=== PATIENT | female | born 1990 | race Caucasian/White ===

== ENCOUNTER 2016-12-22 05:25 | Inpatient (IN) ==
[2016-12-22] MEDS ORDERED: *HR* LORazepam 2 MG/ML VIAL IM PRN (06:04)
[2016-12-22] MEDS ORDERED: Mag Hydrox/Al Hydrox/Simeth 30 ML UDC PO PRN (06:04)
[2016-12-22] MEDS ORDERED: Ibuprofen 400 MG TABLET PO PRN (06:04)
[2016-12-22] MEDS ORDERED: *HR* LORazepam 1 MG TABLET PO PRN (06:04)
[2016-12-22] MEDS ORDERED: hydrOXYzine pamoate 25 MG CAPSULE PO PRN (06:04)
[2016-12-22] MEDS ORDERED: Haloperidol Lactate 5 MG/ML VIAL IM PRN (06:04)
[2016-12-22] MEDS ORDERED: MOM Conc 10 ML UD.LIQ PO PRN (06:04)
--- NOTE | 2016-12-22 13:03 | Psychiatry History & Physical ---
Date of Encounter: 12/22/16 Time of Encounter: 12:45 History of Present Illness Patient Stated Chief Complaint: "I just had a break down." Medicare Admission Attestation: For traditional Medicare patients the provided hospital inpatient services are reasonable and necessary and in the case of services not specified as inpatient -only under 42 CFR 419.22 (n), that they are appropriately provided as inpatient services in accordance 42 CFR 412.3. For Critical Access Hospital the patient may reasonably be expected to be discharged or transferred to a hospital within 96 hours after admission to the Critical Access Hospital. Admitted From: Direct Admit Plans for Post Hospital Care: Home History of Present Illness: Ms. Barnes is a 26 year old female reports increasing anxiety and stress. She reports increasing depression and auditory hallucinations "telling me to do things." She states that she has chronic passive suicidal ideations and that she continues to feel hopeless and helpless about her life. Her biggest stressor was that she recently went to court with her youngest son's dad and there was a potential change in visitation. Patient's ex did not get any visitation of her son which they will revisit the issue in February. Patient states that her outpatient psychiatrist has continued to increase and had meds but she has not noted significant benefit from these additions. She is not aware of any help on the lithium or the venlafaxine. She still feels very depressed. She does continue to have auditory hallucinations but she states that they come and go. She has a history of depression with both of her children. Last admission here was 2014. She does follow up with a therapist as an outpatient as well. She reports difficulty sleeping lately even with the Seroquel at bedtime. "I can usually fall asleep but I cannot stay asleep." Patient reports at least 2-3 hours of sleep per night but sometimes no more than this. She also has urine drug screen positive for cocaine but denies illicit drug use. She denies alcohol or tobacco use. She denies obsessions, delusions, paranoia. She denies grandiosity or decreased need for sleep. Past Med Surg Social Fam HX - Past Medical History Medical history: no medical history - Past Psychiatric History Psychiatric history: Reports: previous psychiatric hospitalization Past psychiatric history details: Patient reports two previous admissions. Last admission was in 2014 for suicide attempt. Patient sees outpatient therapist and gets medication adjustments. Family psychiatric history: No Family History of Suicide: None - Past Surgical History Surgical History: - Social History Smoking Status: Never smoker Smokeless Tobacco Status: No Alcohol use: none Drug use: none, cocaine (+in uds) Occupational status: disabled Current living situation: With Family - Family History Mother History Unknown: Yes Name: Eva Barnes Age: 43 Family Member Ethnicity: Non- Living Status: Still Living Medications & Allergies Sanderson Carbonate 300 mg PO BID 12/22/16 [History] Quetiapine Fumarate [SEROquel] 25 mg PO QID 12/22/16 [History] Quetiapine Fumarate [Seroquel] 200 mg PO HS 12/22/16 [History] Venlafaxine XR (24 HR) [Effexor XR] 150 mg PO QAM 12/22/16 [History] cloNIDine HCl [Clonidine HCl] 0.2 mg PO HS 12/22/16 [History] hydrOXYzine pamoate [Hydroxyzine Pamoate] 100 mg PO HS 12/22/16 [History] Allergies No Known Allergies Allergy (Verified 12/22/16 06:02) Review of Systems Constitutional: Denies: fever, chills, weakness, weight change Eyes: Denies: eye pain, vision change Ears, Nose, Throat: Denies: ear pain, throat pain, dental pain, hearing loss, congestion Cardiovascular: Denies: chest pain, palpitations, dyspnea on exertion Respiratory: Denies: cough, dyspnea, wheezes Gastrointestinal: Denies: abdominal pain, nausea, vomiting, diarrhea, constipation Genitourinary male: Denies: urgency, dysuria, frequency, genital lesions Genitourinary female: Denies: urgency, dysuria, frequency, abnormal menses, dyspareunia Musculoskeletal: Denies: joint swelling, joint pain Integumentary: Denies: rash, lesions, pruritus Neurological: Denies: headache, weakness, numbness, memory loss Psychiatric: Reports: depression, anxiety, abnormal sleep pattern, suicidal ideation, auditory hallucinations, anhedonia, difficulty concentrating, hopelessness, mood swings Endocrine: Denies: fatigue, heat or cold intolerance Hematologic/Lymphatic: Denies: easy bruising, lymphadenopathy Allergic/Immunologic: Denies: urticaria, itchy eyes Mental Status Exam Patient orientation: Yes Person, Yes Time, Yes Place Level of alertness: Alert Patient appearance: Unkempt Behavior: cooperative Psychomotor activity: Slowed Eye contact: Diverts Contact Mood description: Depressed, Anxious Affect description: flat Speech pattern: Slowed Thought process: Intact Thought content: Yes Suicidal ideation Perceptual disturbances: No Reacting to internal stimuli, Yes Auditory hallucinations Attention span: Capable of Focused Attention Memory description: Grossly Intact Patient reliability: Questionable Historian Intelligence estimate: Average Judgment: Limited Insight: Minimal Exam - HEENT Head exam IM: Present: atraumatic Eye exam IM: Present: EOMI, normal appearance - Neurological Neurological exam IM: Present: CN II-XII intact - Extremities Extremities exam IM: Present: full ROM - Skin Skin exam IM: Present: dry, intact Results - Vital Signs Vital signs: Temp Pulse Resp BP 96.9 F L 85 16 105/73 12/22/16 09:00 12/22/16 09:00 12/22/16 09:00 12/22/16 09:00 Assessment and Plan (1) Bipolar disorder with psychotic features Current visit: Yes Status: Acute Plan: Admit inpatient for safety and stabilization, Close observation, Suicide Precautions per unit protocol, Encourage participation in unit milieu, Group Therapy, Monitor sleep, Monitor appetite Additional Plan: We will taper the lithium and consider increasing the Seroquel depending on how patient responds. Taper Effexor and start Wellbutrin. Encourage positive coping strategies. Risks, benefits, side effects, alternatives discussed w/pt: Yes Patient agreeable to treatment: Yes Plans for Post Hospital Care: Home Estimated Length of Stay (Days): 3 (2) Anxiety Current visit: Yes Status: Acute Plan: Admit inpatient for safety and stabilization, Close observation, Suicide Precautions per unit protocol, Encourage participation in unit milieu, Group Therapy, Monitor sleep, Monitor appetite Additional Plan: Patient reports difficulty coping with stress and high level of anxiety. Continue hydroxyzine for now. (3) Personality disorder Current visit: Yes Status: Acute Plan: Admit inpatient for safety and stabilization, Close observation, Suicide Precautions per unit protocol, Encourage participation in unit milieu, Group Therapy Additional Plan: Patient has chronically poor coping strategies. Encourage group attendance. Risks, benefits, side effects, alternatives discussed w/pt: Yes Patient agreeable to treatment: Yes
[2016-12-22] MEDS ORDERED: Venlafaxine XR (24 HR) 150 MG CAP.ER.24H PO SCH (13:15)
[2016-12-22] MEDS: BuPROPion SR (12 HR) 150 MG TABLET PO SCH (14:22)
[2016-12-22] MEDS: Venlafaxine XR (24 HR) 75 MG CAP.ER.24H PO SCH (14:22)
[2016-12-22] MEDS: cloNIDine HCl 0.1 MG TABLET PO SCH (20:50)
[2016-12-22] MEDS: hydrOXYzine pamoate 25 MG CAPSULE PO SCH (20:51)
[2016-12-22] MEDS: traZODone 50 MG TABLET PO PRN (20:51)
[2016-12-22] MEDS: Lithium Oral Soln 300 MG/5 ML UDC PO SCH (20:52)
[2016-12-22] MEDS ORDERED: Lithium Carbonate 300 MG CAPSULE PO SCH (21:00)
[2016-12-23] MEDS: Venlafaxine XR (24 HR) 75 MG CAP.ER.24H PO SCH (08:52)
[2016-12-23] MEDS: BuPROPion SR (12 HR) 150 MG TABLET PO SCH (08:52)
[2016-12-23] MEDS: Lithium Oral Soln 300 MG/5 ML UDC PO SCH (10:17)
--- NOTE | 2016-12-23 10:38 | Psychiatry Progress Note ---
Date of Encounter: 12/23/16 Time of Encounter: 09:40 Subjective Interval history: Patient seen today for follow-up of depression and anxiety symptoms. She reports that she slept better last night and is starting to feel more rested and having an improved mood. She continues to have occasional auditory hallucinations but they have lessened. She denies issues with the decrease in the lithium. Patient states that she feels more hopeful about her future today than in the past. Occasional SI but patient has no plan to hurt herself here. Review of Systems Constitutional: Denies: fever, chills, weakness, weight change Eyes: Denies: eye pain, vision change Ears, Nose, Throat: Denies: ear pain, throat pain, dental pain, hearing loss, congestion Cardiovascular: Denies: chest pain, palpitations, dyspnea on exertion Respiratory: Denies: cough, dyspnea, wheezes Gastrointestinal: Denies: abdominal pain, nausea, vomiting, diarrhea, constipation Musculoskeletal: Denies: joint swelling, joint pain Neurological: Denies: headache, weakness, numbness, memory loss Psychiatric: Reports: depression, abnormal sleep pattern, suicidal ideation, auditory hallucinations Objective: Exam Patient orientation: Yes Person, Yes Time, Yes Place Level of alertness: Alert Patient appearance: Unkempt Behavior: calm, cooperative Psychomotor activity: Normal Eye contact: Maintains Eye Contact Mood description: Depressed Affect description: congruent with mood Speech pattern: Normal rate, Normal rhythm, Normal tone Speech volume: Normal Thought process: Intact, Logical Thought content: Yes Suicidal ideation Perceptual disturbances: No Reacting to internal stimuli, Yes Auditory hallucinations, No Visual hallucinations Judgment: Limited Insight: Minimal Results - Vital Signs Vital Signs: Temp Pulse Resp BP 98.7 F 87 16 128/82 12/22/16 21:00 12/22/16 21:00 12/22/16 21:00 12/22/16 21:00 Assessment and Plan (1) Bipolar disorder with psychotic features Current visit: Yes Status: Acute Plan: Continue hospitalization, Close observation, Suicide Precautions per unit protocol, Encourage participation in unit milieu, Group Therapy, Monitor sleep, Monitor appetite Additional Plan: Continue taper of lithium and Effexor. Consider increasing Wellbutrin tomorrow. Encourage positive coping strategies. Risks, benefits, side effects, alternatives discussed w/pt: Yes Patient agreeable to treatment: Yes (2) Anxiety Current visit: Yes Status: Acute Plan: Continue hospitalization, Close observation, Suicide Precautions per unit protocol, Encourage participation in unit milieu, Group Therapy, Monitor sleep, Monitor appetite Additional Plan: Continue hydroxyzine for now. (3) Personality disorder Current visit: Yes Status: Acute Plan: Continue hospitalization, Close observation, Suicide Precautions per unit protocol, Encourage participation in unit milieu, Group Therapy, Monitor sleep, Monitor appetite Additional Plan: Encourage group attendance Risks, benefits, side effects, alternatives discussed w/pt: Yes Patient agreeable to treatment: Yes Consult Discharge Plan - Plan Referrals: NO,PCP [Primary Care Provider] -
[2016-12-23] MEDS: cloNIDine HCl 0.1 MG TABLET PO SCH (20:50)
[2016-12-23] MEDS: traZODone 50 MG TABLET PO PRN (20:51)
[2016-12-23] MEDS: hydrOXYzine pamoate 25 MG CAPSULE PO SCH (20:51)
[2016-12-24] MEDS: BuPROPion SR (12 HR) 150 MG TABLET PO SCH (08:38)
[2016-12-24] MEDS: Venlafaxine XR (24 HR) 75 MG CAP.ER.24H PO SCH (08:38)
[2016-12-24] MEDS ORDERED: Lithium Oral Soln 300 MG/5 ML UDC PO SCH (09:00)
[2016-12-24 09:29] VITALS: BP 109/74
--- NOTE | 2016-12-24 09:45 | Discharge Summary ---
Date of Encounter: 12/24/16 Time of Encounter: 09:40 Diagnosis - Discharge Diagnosis (1) Bipolar disorder with psychotic features Priority: Primary Status: Acute (2) Anxiety Priority: Secondary Status: Acute (3) Personality disorder Priority: Secondary Status: Acute Medications - Discharge Medications Prescriptions: [place] Oral Soln [Dune [place]res] 150 mg PO DAILY #30 udc traZODone [TraZODone] 50 mg PO HS PRN #30 tablet PRN Reason: Insomnia Venlafaxine XR (24 HR) [Effexor Xr] 37.5 mg PO QAM #30 cap.er.24h Quetiapine Fumarate [Seroquel] 25 mg PO QID 12/22/16 [History] Quetiapine Fumarate [Seroquel] 200 mg PO HS 12/22/16 [History] cloNIDine HCl [Clonidine HCl] 0.2 mg PO HS 12/22/16 [History] hydrOXYzine pamoate [Hydroxyzine Pamoate] 100 mg PO HS 12/22/16 [History] [place] Oral Soln [[place]] 150 mg PO DAILY #30 udc 12/24/16 [Rx] Venlafaxine XR (24 HR) [Effexor Xr] 37.5 mg PO QAM #30 cap.er.24h 12/24/16 [Rx] traZODone [TraZODone] 50 mg PO HS PRN #30 tablet 12/24/16 [Rx] Allergies No Known Allergies Allergy (Verified 12/22/16 06:02) Provider Date of admission: 12/22/16 05:25 Primary care physician: PCP NO Discharging clinician: Analisa Juárez Assessment and Plan - Patient/Caregiver Discharge Instructions Activity: resume usual activities as tolerated Diet: regular diet - Follow up Plan Follow up with: [facility] [Outside] - 01/04/17 4:00 pm (The above appointment is with [facility] for mental health counseling. You will also see Dr Gaitan, psychiatrist, the same day, 01/04/2017, at 5:45pm.) Functional capacity at discharge: independent ambulation Overall status at discharge: Stable Disposition: Home, Self-Care Hospital Course Hospital course: Ms. Barnes is a 26 year old female with a history of bipolar disorder with severe depression and anxiety as well as personality disorder who presented to the hospital with increasing depression, auditory hallucinations, anxiety symptoms. She was admitted to for psychiatric stabilization. Patient was incorporated into the therapeutic milieu and offer group and individual as well as recreational therapies. She was also offered psychoeducational materials and supportive therapy. Patient was placed on suicide precautions and close observation per unit protocol. Patient felt that medication changes would need to be made because she felt like she was on a lot of medicines of working. D[place] was tapered down and change to the liquid form. Patient decrease dose from 300 mg twice a day down to 150 once a day. She tolerated this medication change well. We continued Seroquel 25 mg 4 times a day and 200 mg daily at bedtime. Continue hydroxyzine at bedtime as well. Patient was offered trazodone as needed for sleep. We tapered Effexor and started Wellbutrin and patient tolerated this medication change well. She reported improvement in her mood. At the time of discharge patient denied suicidal or homicidal ideation, intent, or plan. She denied auditory or visual hallucinations. She felt comfortable continuing her treatment as an outpatient and looking forward to going home to her children. She is discharged in stable condition with outpatient follow-up appointments made. - Time Spent with Patient Total time spent providing and/or coordinating discharge services: Greater than 30 minutes Quality - Multiple Antipsychotics Patient discharged on 2 or more antipsychotic medications: No Procedures - Procedures Procedures: Medication Management, Crisis Stabilization, Supportive Therapy, Group Therapy, Psychoeducational Therapy Mental Status Exam - Mental Status Exam Patient orientation: Yes Person, Yes Time, Yes Place Level of alertness: Alert Patient appearance: Appropriate, Well Groomed Behavior: calm, cooperative Psychomotor activity: Normal Eye contact: Maintains Eye Contact Mood description: Euthymic/stable Affect description: congruent with mood, full range Speech pattern: Normal rate, Normal rhythm, Normal tone Speech Volume: Normal Thought process: Linear, Goal Oriented Thought Content: No Suicidal ideation, No Homicidal ideation, No Overt delusions Perceptual Disturbances: No Auditory hallucinations, No Visual hallucinations Judgment: Fair Insight: Minimal
[2016-12-25] MEDS ORDERED: Venlafaxine XR (24 HR) 37.5 MG CAP.ER.24H PO SCH (09:00)
== END 2016-12-24 12:35 | disposition home or self-care (01) | DRG 753 ==
LOC: 1ANU 05:25
PROVIDERS: ADMIT Student in an Organized Health Care Education/Training Program; ATTEND Student in an Organized Health Care Education/Training Program

== ENCOUNTER 2021-09-15 13:18 | Inpatient (IN) ==
[2021-09-15 14:16] LABS: Basophils # 0.1 K/mcL (0.0-0.2); Basophils % 0.4 %; Eosinophils # 0.2 K/mcL (0.0-0.6); Eosinophils % 1.6 %; Hematocrit 41.6 % (35.3-44.9); Hemoglobin 13.6 g/dL (11.5-15.4); Immature Granulocytes % 0.8 % (0-4); Lymphocytes # 2.8 K/mcL (0.6-4.6); Lymphocytes % 22.9 %; Mean Corpuscular HGB Conc 32.7 g/dL (31.6-35.5); Mean Corpuscular Hemoglobin 27.5 pg (28.0-33.3); Mean Corpuscular Volume 84.2 fL (83.0-100.0); Mean Platelet Volume 10.5 fL (9.4-12.4); Monocytes # 0.6 K/mcL (0.0-1.3); Monocytes % 4.5 %; Neutrophils # 8.5 K/mcL (1.6-8.9); Platelet Count 339 K/mcL (140-400); Red Blood Count 4.94 M/mcL (3.82-4.97); Red Cell Distribution Width 13.2 % (11.5-14.5); Segmented Neutrophils % 69.8 %; White Blood Count 12.2 K/mcL (4.3-11.1)
[2021-09-15 14:23] LABS: Bacteria,Urine Few per hpf (None-Few); Bilirubin,Urine Negative (Negative); Blood,Urine Trace (Negative); Clarity,Urine Turbid (Clear); Color,Urine Yellow (Yellow); Glucose,Urine (UA) Normal (Normal); Ketones,Urine Negative (Negative); Leukocyte Esterase,Urine Small (Negative); Mucus,Urine Many per lpf (None-Few); Nitrite,Urine Negative (Negative); Protein,Urine 30 mg/dL (Neg-Trace); Specific Gravity,Urine > 1.030 (1.010-1.025); Squamous Epithelial Cell,Urine Moderate per hpf (None-Few); Urobilinogen,Urine Normal (Normal)
[2021-09-15 14:36] LABS: Acetaminophen < 10 mcg/mL (10-20); Amphetamine Screen,Urine Negative ng/mL (Cutoff=1000); BUN/Creatinine Ratio 13 (6-26); Barbiturate Screen,Urine Negative ng/mL (Cutoff=200); Benzodiazepines Screen,Urine Positive ng/mL (Cutoff=200); Blood Urea Nitrogen 12 mg/dL (6-20); Calcium 8.6 mg/dL (8.6-10.3); Cannabinoid Screen,Urine Negative ng/mL (Cutoff = 50); Carbon Dioxide 27 mEq/L (23-29); Chloride 103 mEq/L (98-107); Cocaine Screen,Urine Negative ng/mL (Cutoff= 300); Ethanol < 10 mg/dL (Less than 10); Glucose 95 mg/dL (70-105); Opiate Screen,Urine Negative ng/mL (Cutoff=300); Osmolality,Calculated 282 (280-300); Phencyclidine Screen,Urine Negative ng/mL (Cutoff=25); Potassium 3.8 mEq/L (3.5-5.1); Salicylate < 2.5 mg/dL (15.0-30.0); Sodium 136 mEq/L (136-145); eGFR For African Americans > 60 (> 60); eGFR For Non-African Americans > 60 (> 60)
[2021-09-15 18:49] LABS: Influenza A PCR Negative (Negative); Influenza B PCR Negative (Negative); Resp. Syncytial Virus PCR Negative (Negative); SARS-CoV-2 by PCR (In House) Negative (Negative)
[2021-09-15] MEDS ORDERED: haloperidoL 5 MG TABLET PO PRN (18:54)
[2021-09-15] MEDS ORDERED: traZODone 50 MG TABLET PO PRN (18:54)
[2021-09-15] MEDS ORDERED: Acetaminophen 325 MG TABLET PO PRN (18:54)
[2021-09-15] MEDS ORDERED: *HR* LORazepam 2 MG/ML VIAL IM PRN (18:54)
[2021-09-15] MEDS ORDERED: *HR* LORazepam 1 MG TABLET PO PRN (18:54)
[2021-09-15] MEDS ORDERED: Haloperidol Lactate 5 MG/ML VIAL IM PRN (18:54)
[2021-09-15] MEDS ORDERED: ALPRAZOLAM 1 MG PO SCH (21:00)
[2021-09-15] MEDS: ALPRAZolam 1 MG TABLET PO PRN (21:45)
[2021-09-16] MEDS: Levothyroxine 25 MCG TABLET PO SCH (06:55)
[2021-09-16] MEDS ORDERED: Mag Hydrox/Al Hydrox/Simeth 30 ML UDC PO PRN (08:07)
[2021-09-16] MEDS ORDERED: MOM Conc 10 ML UD.LIQ PO PRN (08:07)
[2021-09-16] MEDS: BuPROPion XL (24 HR) 150 MG TABLET PO SCH (08:41)
[2021-09-16] MEDS: ALPRAZolam 1 MG TABLET PO PRN (08:46)
[2021-09-16] MEDS ORDERED: FLUOXETINE HCL 20 MG PO SCH (09:00)
[2021-09-16] MEDS ORDERED: FLUoxetine 20 MG CAPSULE PO SCH (09:00)
[2021-09-16] MEDS: hydrOXYzine pamoate 25 MG CAPSULE PO PRN (12:30)
[2021-09-16] MEDS ORDERED: ALPRAZolam 1 MG TABLET PO ONE (15:00)
[2021-09-16] MEDS: diazePAM 5 MG TABLET PO SCH (21:03)
[2021-09-17] MEDS: Levothyroxine 25 MCG TABLET PO SCH (07:15)
[2021-09-17] MEDS: BuPROPion XL (24 HR) 150 MG TABLET PO SCH (08:54)
[2021-09-17] MEDS: diazePAM 5 MG TABLET PO SCH ×2 (08:56→21:28)
[2021-09-18] MEDS: Levothyroxine 25 MCG TABLET PO SCH (06:49)
[2021-09-18] MEDS: BuPROPion XL (24 HR) 150 MG TABLET PO SCH (08:57)
[2021-09-18] MEDS: diazePAM 5 MG TABLET PO SCH ×2 (08:58→20:35)
[2021-09-18] MEDS: hydrOXYzine pamoate 25 MG CAPSULE PO PRN (18:55)
[2021-09-19] MEDS: Levothyroxine 25 MCG TABLET PO SCH (08:50)
[2021-09-19] MEDS: BuPROPion XL (24 HR) 150 MG TABLET PO SCH (08:50)
[2021-09-19] MEDS: diazePAM 5 MG TABLET PO SCH (08:51)
[2021-09-19 09:30] VITALS: BP 101/69; PULSE 98; TEMP 97.4; O2SAT 92
== END 2021-09-19 12:00 | disposition home or self-care (01) | DRG 750 ==
LOC: EMEROOARM 13:18 → 1ANU 19:12
PROVIDERS: ADMIT Psychiatry & Neurology Psychiatry; ATTEND Psychiatry & Neurology Psychiatry